=== PATIENT | female | born 1990 | race Caucasian/White ===

== ENCOUNTER 2018-07-10 10:05 | Day surgery (SDC) | payer OTHER ==
[2018-07-10] MEDS ORDERED: FENTAnyl 50 MCG/ML VIAL (11:25)
[2018-07-10] MEDS ORDERED: MIDAZOLAM 1 MG/ML 2 ML INJ ×3 (11:25)
== END 2018-07-10 12:01 | disposition home or self-care (01) ==
LOC: GIL 10:05
DX: K29.70 Gastritis, unspecified, without bleeding (principal); K44.9 Diaphragmatic hernia without obstruction or gangrene; K21.9 Gastro-esophageal reflux disease without esophagitis; K64.8 Other hemorrhoids
CPT/HCPCS: 43239; 84703; 88305; 88312